=== PATIENT | male | born 1955 | race Caucasian/White ===

== ENCOUNTER 2016-06-25 12:27 | Emergency (ER) | payer MEDICAID ==
--- NOTE | 2016-07-07 08:39 | ER ---
ADMIT: 06/25/2016 RM/LOC: ER [facility] MR#: [id number] [facility] [id number] BASIL HENRY [address] [place] [address] Emergency Room Report SEX: M AGE: 60 : 1955 DATE: 06/25/2016 A 60-year-old gentleman, who had a headache last night, checked his blood pressure and found it to be high, and some lightheadedness associated with it. The lightheadedness was mild in nature as was the headache is currently gone. He does complain of a little lightheadedness now. There are no other focal neurologic findings. No change in vision. No numbness or tingling or loss of strength. He does say that primary doctor has been changing his medications around for blood pressure control. See T-sheet for history and physical. The patient diagnosed with hypertension and dizziness, it was not orthostatic, and was encouraged to follow up with his primary doctor yet this week for further evaluation. Carl Vargas MD/ taylor JOB #: [id number] CC: Benoit Khoury MD, Attending Physician UNKNOWN, Family Physician
== END 2016-06-25 14:35 | disposition home or self-care (01) ==
LOC: ER 12:27
DX: R42 Dizziness and giddiness (principal); I10 Essential (primary) hypertension; F17.210 Nicotine dependence, cigarettes, uncomplicated; Z79.899 Other long term (current) drug therapy; Z98.890 Other specified postprocedural states